=== PATIENT | female | born 1955 | race Hispanic/Latino ===

== ENCOUNTER 2020-05-10 05:43 | Emergency (ER) | payer MEDICARE ==
[2020-05-10 05:56] VITALS: BP 140/72
--- NOTE | 2020-05-10 06:02 | Emergency Department Report ---
ED Extremity Problem HPI - General Chief complaint: Extremity Injury, Lower Stated complaint: LEG/BACK PAIN Source: patient Mode of arrival: Ambulatory Limitations: No Limitations - History of Present Illness Initial comments: Patient is a 64-year-old white female with a history of hypertension and chronic osteoarthritis affecting her right knee joint and right hip and chronic low back pain who presents to the ED with acute exacerbation of her chronic low back pain, right knee and right hip for the last 1 month, worse in the last 2 days. Patient states that she has previously been evaluated by her orthopedic surgeon and treated with steroid injections or oral tablets the last of which she used 2 days ago. Patient said that the last 12 hours she has not been able to sleep because of worsening right hip and right knee pain. Patient denies fall, traumatic injury, headache, chest pain, shortness of breath, numbness and tingling or weakness of lower extremities bilaterally, dizziness, heavy lifting, fever and chills. MD Complaint: extremity pain (right hip and knee pain), joint paint (right hip and knee pain) -: Gradual, year(s) (1) Location: right, lower extremity (right hip and knee ) History of Same: Yes (chronic osteoarthritis) -: Yes arthralgia (right knee and hip) Severity scale (0 -10): 8 Quality: stabbing, aching, sharp Consistency: constant Improves with: nothing Worsens with: weight bearing, walking, palpation Associated Symptoms: denies other symptoms, arthralgias (chronic right hip and knee pain due to osteoarrthritis). denies: chest pain, shortness of breath, fever - Related Data Previous Rx's Medication Instructions Recorded Last Taken Type methOCARBAMOL [Robaxin TAB] 500 mg PO BID #30 tab 05/10/20 Unknown Rx oxyCODONE /ACETAMINOPHEN [Percocet 1 tab PO Q6HR PRN #10 tablet 05/10/20 Unknown Rx 5/325] Allergies Allergy/AdvReac Type Severity Reaction Status Date / Time codeine Allergy Unknown Verified 05/10/20 05:54 ED Review of Systems ROS: Stated complaint: LEG/BACK PAIN Other details as noted in HPI Constitutional: denies: chills, fever Eyes: denies: eye pain, eye discharge, vision change ENT: denies: ear pain, throat pain Respiratory: denies: cough, shortness of breath, wheezing Cardiovascular: denies: chest pain, palpitations Endocrine: no symptoms reported Gastrointestinal: denies: abdominal pain, nausea, diarrhea Genitourinary: denies: urgency, dysuria, discharge Musculoskeletal: arthralgia (right hip and knee pain). denies: back pain, joint swelling Skin: denies: rash, lesions Neurological: denies: headache, weakness, paresthesias Psychiatric: denies: anxiety, depression Hematological/Lymphatic: denies: easy bleeding, easy bruising ED Past Medical Hx - Past Medical History Previous Medical History?: Yes Hx Hypertension: Yes Hx Arthritis: Yes Additional medical history: chronic lower back and leg pain. - Surgical History Past Surgical History?: Yes Hx Appendectomy: Yes Additional Surgical History: tubal ligation - Social History Smoking Status: Never Smoker Substance Use Type: None - Medications Home Medications: Home Medications Medication Instructions Recorded Confirmed Last Taken Type methOCARBAMOL [Robaxin TAB] 500 mg PO BID #30 tab 05/10/20 Unknown Rx oxyCODONE /ACETAMINOPHEN [Percocet 1 tab PO Q6HR PRN #10 tablet 05/10/20 Unknown Rx 5/325] ED Physical Exam - General Limitations: No Limitations General appearance: alert, in no apparent distress - Head Head exam: Present: atraumatic, normocephalic - Eye Eye exam: Present: normal appearance, PERRL, EOMI Pupils: Present: normal accommodation - ENT ENT exam: Present: normal exam, normal orophraynx, mucous membranes moist, TM's normal bilaterally, normal external ear exam - Neck Neck exam: Present: normal inspection, full ROM - Respiratory Respiratory exam: Present: normal lung sounds bilaterally. Absent: respiratory distress, wheezes, rales, rhonchi, chest wall tenderness, accessory muscle use, decreased breath sounds, prolonged expiratory - Cardiovascular Cardiovascular Exam: Present: regular rate, normal rhythm, normal heart sounds. Absent: systolic murmur, diastolic murmur, rubs, gallop - GI/Abdominal GI/Abdominal exam: Present: soft, normal bowel sounds. Absent: tenderness, guarding, hyperactive bowel sounds, hypoactive bowel sounds, organomegaly - Extremities Exam Extremities exam: Present: normal inspection, full ROM, tenderness (Palpable right hip and knee tenderness), normal capillary refill - Back Exam Back exam: Present: normal inspection, full ROM. Absent: tenderness, CVA tenderness (L), muscle spasm, paraspinal tenderness, vertebral tenderness - Neurological Exam Neurological exam: Present: alert, oriented X3, CN II-XII intact, normal gait, reflexes normal - Psychiatric Psychiatric exam: Present: normal affect, normal mood - Skin Skin exam: Present: warm, dry, intact, normal color. Absent: rash ED Course Vital Signs 05/10/20 05:54 Temperature 97.8 F Pulse Rate 96 H Respiratory 18 Rate Blood Pressure 140/72 O2 Sat by Pulse 98 Oximetry ED Medical Decision Making - Medical Decision Making This is a 64-year-old white female with a history of hypertension and chronic osteoarthritis affecting her right knee joint and right hip and chronic low back pain who presents to the ED with acute exacerbation of her chronic low back pain, right knee and right hip for the last 1 month, worse in the last 2 days. Patient states that she has previously been evaluated by her orthopedic surgeon and treated with steroid injections or oral tablets the last of which she used 2 days ago. Patient said that the last 12 hours she has not been able to sleep because of worsening right hip and right knee pain. In the ED, patient is alert and oriented x3 and is not in any distress but appears to be in significant pain. Patient was treated for pain in the ED and was discharged home on pain medications. Patient was advised to follow-up with her orthopedic surgeon in 2 to 3 days for reevaluation or return to the ED immediately if symptoms get worse. - Differential Diagnosis Osteoarthritis, hip bursitis, knee tendinitis, muscle strain Critical care attestation.: If time is entered above; I have spent that time in minutes in the direct care of this critically ill patient, excluding procedure time. ED Disposition Clinical Impression: Chronic pain disorder Right knee DJD Qualifiers: Osteoarthritis type: primary Qualified Code(s): M17.11 - Unilateral primary osteoarthritis, right knee Osteoarthritis of right hip Qualifiers: Osteoarthritis type: primary Qualified Code(s): M16.11 - Unilateral primary osteoarthritis, right hip Disposition: - TO HOME OR SELFCARE Is pt being admited?: No Does the pt Need Aspirin: No Condition: Stable Instructions: Arthritis, [id number] Additional Instructions: Take medication with food, drink plenty of fluids and follow-up with your primary care physician in 7 to 10 days for reevaluation. Return to the ED immediately if symptoms get worse. Prescriptions: oxyCODONE /ACETAMINOPHEN [Percocet 5/325] 1 tab PO Q6HR PRN #10 tablet PRN Reason: Pain methOCARBAMOL [Robaxin TAB] 500 mg PO BID #30 tab Referrals: [facility] [Provider Group] - 3-5 Days Forms: Work/School Release Form(ED) Time of Disposition: 05:59 Print Language: [place]
[2020-05-10] MEDS ORDERED: ONDANSETRON 4 MG ODT TAB PO ONE (06:11)
[2020-05-10] MEDS ORDERED: predniSONE 20 MG TAB PO ONE (06:11)
[2020-05-10] MEDS ORDERED: oxyCODONE /ACETAMINOPHEN 5-325MG TAB PO ONE (06:11)
== END 2020-05-10 07:57 | disposition home or self-care (01) ==
LOC: ED 05:43
DX: M17.11 Unilateral primary osteoarthritis, right knee (principal); M16.11 Unilateral primary osteoarthritis, right hip; G89.29 Other chronic pain; I10 Essential (primary) hypertension; M19.90 Unspecified osteoarthritis, unspecified site; Z90.49 Acquired absence of other specified parts of digestive tract; Z98.51 Tubal ligation status; Z79.899 Other long term (current) drug therapy; Z88.6 Allergy status to analgesic agent
CPT/HCPCS: 99282; J7512; Q0162